=== PATIENT | male | born 1935 | race Caucasian/White ===

== ENCOUNTER 2020-10-13 09:06 | Emergency (ER) | payer MEDICARE, BC ==
[~2020-10-13] VITALS: Ht 170.2 cm; Wt 81.8 kg
[2020-10-13 09:37] VITALS: BP 120/69
[2020-10-13] MEDS ORDERED: ketorolac tromethamine 15mg/ml inj. IM ONE (14:50)
[2020-10-13] MEDS ORDERED: ONDA4TAB6 PO (16:11)
[2020-10-13] MEDS ORDERED: HYDR-3965 PO (16:11)
[2020-10-13] MEDS ORDERED: WALKERFR (16:11)
--- NOTE | 2020-10-13 16:33 | NUR ---
PER PT NAOMI GAVE TORDOL.
== END 2020-10-13 16:41 | disposition home or self-care (01) ==
LOC: ER 09:07
DX: M25.561 Pain in right knee (principal); M25.461 Effusion, right knee; Z98.890 Other specified postprocedural states; Z88.8 Allergy status to other drugs, medicaments and biological substances; Z79.899 Other long term (current) drug therapy
CPT/HCPCS: 29505; 73564; 99284

== ENCOUNTER 2021-07-01 18:23 | Emergency (ER) | payer MEDICARE, BC ==
[~2021-07-01] VITALS: Ht 175.3 cm; Wt 79.5 kg
[~2021-07-01 18:23] MED LIST: ONDA4TAB6 PO; WALKERFR
[2021-07-01 18:27] VITALS: BP 158/113
--- NOTE | 2021-07-01 18:49 | NUR ---
PT TO XRAY
[2021-07-01] MEDS ORDERED: TETanus/Pertussis (Acell)/Diphther VAC/PF (Tdap-Adult) 0.5ml syringe IMVAC ONE (21:00)
== END 2021-07-01 22:22 | disposition home or self-care (01) ==
LOC: ER 18:24
DX: S42.392A Other fracture of shaft of left humerus, initial encounter for closed fracture (principal); W22.8XXA Striking against or struck by other objects, initial encounter; Y93.89 Activity, other specified; Y92.89 Other specified places as the place of occurrence of the external cause; Y99.8 Other external cause status
CPT/HCPCS: 12002; 73030; 73060; 73090; 90471; 90715; 99284